=== PATIENT | female | born 1990 | race African-American/Black ===

== ENCOUNTER 2021-08-08 14:11 | Outpatient (CLI) | payer BC, SELFPAY ==
--- NOTE | ~2021-08-08 | US_ITS ---
EXAMINATION: US venous doppler [facility] DATE: 08/08/2021 14:58 INDICATION: Left lower limb edema and pain. TECHNIQUE: Grayscale ultrasound images without and with compression and Doppler ultrasound images of the left lower extremity veins were obtained. COMPARISON: None. FINDINGS: The visualized portions of left common femoral vein, profunda (deep) femoral vein, femoral vein, popl iteal vein, peroneal veins, posterior tibial veins, and greater saphenous vein outflow are patent. IMPRESSION: 1. No deep venous thrombosis. Reviewed, dictated and finalized at location A. EDURE ANALYST
== END 2021-08-08 14:12 | disposition home or self-care (01) ==
LOC: ANHIMG 14:25
PROVIDERS: PCP Emergency Medicine; Visit Provider Advanced Practice Midwife
DX: R60.0 Localized edema (principal); M25.572 Pain in left ankle and joints of left foot
CPT/HCPCS: 93971

== ENCOUNTER 2021-08-29 16:02 | Outpatient (CLI) | payer BC, OTHER, SELFPAY ==
[2021-08-29 16:40] VITALS: BP 135/82; PULSE 87
[2021-08-29 16:45] VITALS: BP 136/85; PULSE 89
[2021-08-29 16:57] LABS: Basophils Percent Auto 0.1 % (0.2-1.2); Eosinophils Absolute Auto 0.1 K/mm3 (0-0.3); Hematocrit 28.9 % (37.0-47.0); Immature Granulocyte Absolute 0.07 K/mm3 (0.00-0.031); Immature Granulocyte Percent A 0.8 % (0-0.5); Lymphocytes Absolute Auto 1.75 K/mm3 (0.9-3.2); Lymphocytes Percent Auto 19.5 % (18.3-44.2); Mean Corpuscular HGB Conc 31.1 g/dl (32-36); Mean Corpuscular Hemoglobin 25.5 pg (26-34); Mean Corpuscular Volume 81.9 fl (80-100); Mean Platelet Volume 10.9 fl (7.4-10.4); Monocytes Absolute Auto 1.1 K/mm3 (0.1-0.6); Neutrophils Percent Auto 66.6 % (45.5-73.1); Platelet Count Result 169 k/mm3 (150-375); Red Blood Count 3.53 M/mm3 (4.2-5.4); Red Cell Distribution Width 17.4 % (11.5-14.5)
[2021-08-29 17:00] VITALS: BP 136/83; PULSE 93
[2021-08-29 17:07] LABS: Alanine Aminotransferase 19 U/L (4-35); Albumin Level 3.2 g/dL (3.5-5.1); Alkaline Phosphatase 179 U/L (38-126); Anion Gap 6 mmol/L (8-16); Aspartate Amino Transferase 29 U/L (14-36); Bilirubin,Total 0.5 mg/dL (0.2-1.3); Blood Urea Nitrogen 8 mg/dL (7-17); Calcium 8.9 mg/dL (8.4-10.2); Carbon Dioxide 21 mmol/L (22-30); Chloride 105 mmol/L (98-107); Estimated Glomerular Filt Rate > 60; Glucose 79 mg/dL (65-110); Potassium 3.9 mmol/L (3.4-5.0); Sodium 132 mmol/L (137-145); Uric Acid 7.7 mg/dL (2.5-7.5)
[2021-08-29 17:15] VITALS: BP 138/78; PULSE 82
--- NOTE | 2021-08-29 17:35 | PC.NURSE ---
Called Garrett Kwan CNM with lab results and BPs. December D/C home. Follow up in office on Friday for BP check. Take Iron BID and start 24hr urine.
[2021-08-29 17:41] LABS: Add Urine Microscopic? NO; Appearance Urine Clear (Clear); Bilirubin Urine Negative (Negative); Blood Urine Negative (Negative); Color Urine Yellow (Yellow); Glucose Urine UA Negative (Negative); Ketones Urine Negative (Negative); Leukocyte Esterase Ur Negative LEU/UL (NEGATIVE); Nitrate Urine Negative (Negative); Protein Urine Negative (Negative); Specific Grav Ur 1.009 (1.001-1.035); Urobilinogen Urine Negative mg/dL (<2.0)
[2021-08-29 17:46] LABS: Total Protein Urine Random 9 mg/dL
== END 2021-08-29 18:00 | disposition home or self-care (01) ==
LOC: ANHOBOP 16:08 → ANHOBPP 16:12
PROVIDERS: Advanced Practice Midwife; PCP Emergency Medicine; Visit Provider Obstetrics & Gynecology
DX: O13.9 Gestational [pregnancy-induced] hypertension without significant proteinuria, unspecified trimester (principal); Z3A.00 Weeks of gestation of pregnancy not specified
CPT/HCPCS: 36415; 59025; 80053; 81003; 82570; 84156; 84550; 85025; 87086; 87088; 99199

== ENCOUNTER 2021-08-30 19:15 | Outpatient (NON) | payer BC, MEDICAID, SELFPAY ==
[2021-08-30 19:25] VITALS: BMI 37.5
[2021-08-30 21:51] LABS: Collection Time Urine 24 HOURS
[2021-08-30 21:52] LABS: Patient Weight 211 Lbs
[2021-08-30 21:54] LABS: Total Volume 24 Hour Urine 1750 ml
[2021-08-30 22:07] LABS: Creatinine Clearance Urine 118.5 ml/min (75-125); Creatinine Urine 88.9 mg/dL; Total Protein Urine 24 Hr 122 mg/24hr (28-141); Total Protein Urine Random 7 mg/dL
== END 2021-08-30 19:16 | disposition home or self-care (01) ==
LOC: ANHOBOP 19:20
PROVIDERS: Advanced Practice Midwife; PCP Emergency Medicine; Visit Provider Obstetrics & Gynecology
DX: R03.0 Elevated blood-pressure reading, without diagnosis of hypertension (principal)
CPT/HCPCS: 81050; 82575; 84156

== ENCOUNTER 2021-09-06 11:45 | Inpatient (IN) | payer BC, SELFPAY ==
[2021-09-06] VITALS (136 sets, daily range): BP systolic 123–169; BP diastolic 58–114; PULSE 85–151; RESP 16–18; TEMP 37.1–37.3; O2SAT 83–100; BMI 37.8
--- NOTE | 2021-09-06 12:30 | P.PNAN_ITS ---
Anes - Eval Pre Procedure Date/Time: 09/06/21 12:30 Pre Op Diagnosis: contractions Patient Data Age: 31 Gender: F Height: Weight: Last Vital Signs Pulse 88 09/06/21 12:15 BP 138/86 09/06/21 12:15 Allergies Allergy/AdvReac Type Severity Reaction Status Date / Time No Known Allergies Allergy Verified 08/27/21 14:47 Home Medications Medication Instructions Recorded Confirmed Type prenat.vits,ja,bwi-yuvk-didbd 1 tablet PO DAILY 08/27/21 08/27/21 History [ #2] Patient hx anesthesia problems: none Family hx anesthesia problems: none Results Review: All pre-operative results and documents have been reviewed as part of the pre-operative evaluation. [facility] Family History Family History Other No pertinent family history Social History Social History Substance use: never Spiritual care concerns: No Exam Day of Procedure 09/06/21 12:30 Patient weight: obese Heart: regular rate and rhythm Lungs: normal air movement Airway: Mallampati scale class II Neurological: alert and oriented
--- NOTE | 2021-09-06 14:09 | LDADM ---
This patient, Iris Killian, was admitted to Labor/Delivery/Recovery 106 on 09/06/21 at 11:45. Plans for labor, pain management and were discussed with patient. Patient/family oriented to hospital policies and general routines including ID bracelet, bed and alarms, visiting hours, pain management, procedures, bathroom and other care routines, personal items, smoking policy, room service/diet and guest tray routines, infant security routines, and visiting hours. Patient/Family are encouraged to report perceived risks to care and to ask questions if they do not understand what they are told or what they should do. See OBIX for further documentation.
[2021-09-06 14:23] LABS: Basophils Percent Auto 0.1 % (0.2-1.2); Eosinophils Absolute Auto 0.1 K/mm3 (0-0.3); Eosinophils Percent Auto 0.7 % (0-4.4); Hemoglobin 9.9 g/dL (12.0-15.0); Immature Granulocyte Absolute 0.09 K/mm3 (0.00-0.031); Lymphocytes Absolute Auto 1.73 K/mm3 (0.9-3.2); Mean Corpuscular HGB Conc 30.9 g/dl (32-36); Mean Corpuscular Hemoglobin 25.3 pg (26-34); Mean Corpuscular Volume 81.8 fl (80-100); Mean Platelet Volume 10.8 fl (7.4-10.4); Monocytes Percent Auto 10.5 % (2.6-8.5); Neutrophils Absolute Auto 6.3 K/mm3 (1.3-6.7); Neutrophils Percent Auto 68.7 % (45.5-73.1); Nucleated Red Blood Cells Perc 0.2 % (0.0-0.2); Platelet Count Result 184 k/mm3 (150-375); Red Blood Count 3.91 M/mm3 (4.2-5.4); Red Cell Distribution Width 17.9 % (11.5-14.5); White Blood Count 9.1 K/mm3 (4.5-10.0)
[2021-09-06] MEDS: fentaNYL CITRATE INJ (*CRX) 100 MCG/2 ML VIAL IV PUSH (14:27)
--- NOTE | 2021-09-06 15:12 | PM.IMHP ---
H&P: HPI History of Present Illness Date/Time: 09/06/21 15:12 31 y/o G1 @ 37 weeks here in spontaneous labor. Chief Complaint: Labor Review of Systems Review of Systems: All systems reviewed & are unremarkable except as noted in HPI and below Constitutional: Constitutional: Reports as per HPI and Reports no additional constitutional complaints Eyes: Eyes: Reports as per HPI ENT: Reports system reviewed and no additional complaints, except as documented Cardiovascular: Cardiovascular: Reports as per HPI Respiratory: Respiratory: Reports as per HPI Gastrointestinal: Gastrointestinal: Reports as per HPI Genitourinary: Genitourinary: Reports no additional female genitourinary complaints Musculoskeletal: Musculoskeletal: Reports no additional musculoskeletal complaints Integumentary/Breasts: Skin/Breast: Reports system reviewed and no additional complaints, except as docu Neurologic: Reports system reviewed and no additional complaints, except as documented Psychiatric: Psychiatric: Reports no additional psychiatric complaints Endocrine: Endocrine: Reports no additional endocrine complaints Hematologic/Lymphatic: Hematologic/Lymphatic: Reports no additional hematologic/lymphatic complaints Allergic/Immunologic: Allergic/Immunologic: Reports no additional allergic/immunologic complaints [facility] Family History Family History Other No pertinent family history Social History Social History Smoking status: Never smoker Substance use: never Spiritual care concerns: No Meds Home Medications and Allergies Home Medications Medication Instructions Recorded Confirmed Type prenat.vits,ja,ric-xspv-cldwk 1 tablet PO DAILY 08/27/21 08/27/21 History [ #2] Allergies Allergy/AdvReac Type Severity Reaction Status Date / Time No Known Allergies Allergy Verified 08/27/21 14:47 Vital Signs Vital Signs - 24 hr 09/06/21 12:15 09/06/21 12:30 09/06/21 12:45 Pulse Rate 88 86 86 Blood Pressure 138/86 148/88 H 130/82 09/06/21 13:01 09/06/21 13:15 09/06/21 13:30 Pulse Rate 98 89 89 Blood Pressure 163/85 H 136/83 143/83 H 09/06/21 13:45 09/06/21 14:30 09/06/21 15:00 Pulse Rate 93 93 90 Blood Pressure 132/78 153/89 H 159/113 H Exam Narrative: BP elevated but pt is very uncomfortable with contractions. Contractions regular FHR category 2 with variables Cervix 2cm on admission Const: General: cooperative and healthy appearing Orientation/consciousness: oriented to person, oriented to place, oriented to time and patient oriented x3 Limitations: no limitations HENMT: Head: normal to inspection Ears: hearing grossly normal bilaterally General nose exam: Normal external nose present Face and sinus: normal facial exam Mouth: Yes Normal oral and palatal mucosa present Teeth and gingiva: dentition normal Throat: posterior oropharynx normal Eyes: General: appearance normal, both eyes and all related structures Neck: Neck: normal visual inspection Thyroid: thyroid normal Chest: Chest palpation & inspection: normal inspection of the chest Resp: Effort & Inspection: normal respiratory effort Auscultation: clear to auscultation bilaterally Cardio: Rate: regular rate Rhythm: regular rhythm GI: Inspection: normal to inspection : General: Yes bimanual renal exam normal bilaterally Skin: General skin exam: normal color and no rashes or lesions noted Neuro: General: oriented to person, oriented to place, oriented to time and patient oriented x3 Extrem: General: normal to inspection Psych: Mental Status: mental status grossly normal H&P: Results Labs Labs: Short CBC 09/06/21 Range/Units 14:14 WBC 9.1 (4.5-10.0) K/mm3 Hgb 9.9 L (12.0-15.0) g/dL Hct 32.0 L (37.0-47.0) % Plt Count 184 (150-375) k/mm3 Assessment and Plan
[2021-09-06] MEDS: LACTATED RINGERS 1,000 ML 125 ML IV CONT ×2 (15:20→16:00)
[2021-09-06] MEDS: ONDANSETRON INJ 4 MG/2 ML VIAL IV PUSH (19:55)
[2021-09-06] MEDS: OXYTOCIN 30 UNITS/NS 500 ML 30 UNITS/500 ML BAG IV CONT (20:39)
--- NOTE | 2021-09-06 22:39 | P.PCNOB_ITS ---
OB - Delivery Note Procedure Delivery date: 09/06/21 Procedure: vaginal delivery Intrapartal events: None Induction method: none Delivery monitor: external FHT and external uterine Route of delivery: Episiotomy description: None Laceration Description: Labial (left) Specimen: No Quantitative Blood Loss (ml): 110 Anesthesia type: Epidural Disposition: floor [place] Baby Date of : 09/06/21 Time of : 22:25 Weeks of gestation at delivery: 40 gender: Female Weight (pounds): 8 Weight (ounces): 6 presentation: vertex position: Left Occiput Anterior Placenta delivery description: Spontaneous cord vessel description: 3 Vessels and Delayed Cord Clamping score one minute: 9 score five minutes: 9 Narrative: mom and baby skin to skin in stable condition
[2021-09-07] VITALS (44 sets, daily range): BP systolic 92–153; BP diastolic 33–101; PULSE 76–170; RESP 16–18; TEMP 36.6–37.8; O2SAT 97–100
[2021-09-07] MEDS: LACTATED RINGERS 1,000 ML 125 ML IV CONT (00:13)
--- NOTE | 2021-09-07 04:36 | PM.OBPRVD ---
OB - Delivery Note Procedure Delivery date: 09/07/21 Procedure: vaginal delivery Intrapartal events: None Delivery augmentation: pitocin Delivery monitor: external FHT and external uterine Route of delivery: Episiotomy description: None Laceration Description: None Specimen: No Quantitative Blood Loss (ml): 50 Anesthesia type: Epidural Baby Date of : 09/07/21 Time of : 04:18 Weeks of gestation at delivery: 7 Infant gender: Male presentation: vertex position: Left Occiput Anterior Placenta delivery description: Spontaneous cord vessel description: 3 Vessels and Clamped/Cut Narrative: baby to warmer, peds at bs
[2021-09-07] MEDS: OXYTOCIN 30 UNITS/NS 500 ML 30 UNITS/500 ML BAG 125 UNITS IV CONT (05:00)
[2021-09-07] MEDS: IBUPROFEN 600 MG TABLET PO ×2 (06:17→17:46)
[2021-09-07 06:28] LABS: Rapid Plasma Reagin Non-Reactive (NonReactive)
--- NOTE | 2021-09-07 08:33 | OBPPTRN ---
0755-Patient transferred to post room #285 wheelchair. Support person present. Oriented to unit, room, information board, rooming in, admission packet and security measures. Patient verbalizes understanding.
[2021-09-07] MEDS: DOCUSATE SODIUM 100 MG CAPSULE PO ×2 (08:36→17:46)
[2021-09-07] MEDS: POLYSACCHARIDE IRON COMPLEX 150 MG CAPSULE PO ×2 (08:36→17:46)
[2021-09-07] MEDS: MULTIVIT/MIN/PREN/FOL AC/IRON TABLET 1 TAB PO (08:36)
--- NOTE | 2021-09-07 14:44 | PC.NURSE ---
1000 - Consulted with patient and discussed her feeding plan. Pt states I want to pump , then said she wants to try to put baby to breast. RN placed infant skin to skin with mother, reviewed feeding cues, reviewed positioning/alignment with visual aid of mom and baby guide, holding breast nipple to nose and asymmetrical latch on with assistance of visual handout. Infant at the breast quiet, alert and awake for 5-7 min showing early feeding cues without no wide open gape. Mom states he doesn't like it and I want to pump. I tried . Mom requested a pump. 1015 -Reported to primary RN. Breast pump provided due to lactating mothers request. Instructions given on breast pump care and usage, pumping schedule, nipple care, and collection and storage of breast milk. Encouraged oron-gh-eusu, breast massage and manual expression to stimulate supply. Pumping log on feeding sheet reviewed. Assessed patient for correct flange size, placement and draw. Patient verbalizes and demonstrates understanding of instructions.
[2021-09-07] MEDS: HYDROcodone/acetaminophen (*CRX) 5-325 MG TABLET 1 TAB PO (23:25)
[2021-09-08 00:05] VITALS: BP 137/72; PULSE 82; RESP 16; TEMP 36.8; O2SAT 99
[2021-09-08] MEDS: HYDROcodone/acetaminophen (*CRX) 5-325 MG TABLET 1 TAB PO ×4 (04:15→22:28)
[2021-09-08] MEDS: IBUPROFEN 600 MG TABLET PO ×3 (04:15→22:25)
[2021-09-08 05:42] VITALS: BP 116/67; PULSE 93; RESP 16; TEMP 36.6; O2SAT 99
[2021-09-08 05:51] LABS: Hemoglobin 7.2 g/dL (12.0-15.0)
[2021-09-08] MEDS: DOCUSATE SODIUM 100 MG CAPSULE PO ×2 (07:26→16:29)
[2021-09-08] MEDS: POLYSACCHARIDE IRON COMPLEX 150 MG CAPSULE PO ×2 (07:27→16:29)
[2021-09-08] MEDS: MULTIVIT/MIN/PREN/FOL AC/IRON TABLET 1 TAB PO (07:27)
[2021-09-08 07:43] VITALS: BP 131/90; PULSE 80; RESP 18; TEMP 36.7
--- NOTE | 2021-09-08 08:53 | P.PNOB_ITS ---
OB - PN: Subj Subjective Date/time seen: 09/08/21 08:53 [place] baby status: doing well Narrative: complains of tailbone pain, not up very much. OB - PN: Obj Data Labs CBC & Chem 7: 09/08/21 04:19 Labs: Laboratory Results - last 24 hr 09/08/21 04:19 Hgb 7.2 L Hct 24.0 L OB - PN A/P Assessment and Plan (1) , delivered: Code(s): O80 - Encounter for full-term uncomplicated delivery Status: Acute (2) Anemia: Code(s): D64.9 - Anemia, unspecified Status: Acute Plan day: 1 Plan: routine care Comments: norco for tailbone pain, discussed if fx, just expectant mgt significant anemia- iron and monitor for symptoms when up and about. may need transfusion. Time Spent With Patient Time: Total time spent is greater than 50% in coordination of care (as documented) at patient's floor/unit and/or counseling patient: Time with patient: less than 15 minutes Exam Narrative: NAD abdomen soft, nontender, fundus firm below the umbilicus Extremities nontender, 1+ edema
--- NOTE | 2021-09-08 10:31 | WPDANLDPN2 ---
Anes-Prog Note L&D Date/Time: 09/08/21 10:31 Comfortable throughout: labor and delivery Neuraxial method: epidural Epidural/Spinal procedure site: clean & non-tender Neuro status: Neuro function grossly intact. Cardiovascular status: normal Respiratory status: normal Airway patency: baseline Mental status: baseline Post-Op hydration status: normal Vital Signs: Last Vital Signs Temp 36.7 C 09/08/21 07:43 Pulse 80 09/08/21 07:43 Resp 18 09/08/21 07:43 BP 131/90 09/08/21 07:43 Pulse Ox 99 09/08/21 05:42 Pain score (VAS): 09/03 Post-procedural complaints: none Patient feedback: Patient satisfied with anesthetic care.
[2021-09-08 19:00] VITALS: BP 136/84; PULSE 89; RESP 18; TEMP 36.6
[2021-09-09 08:00] VITALS: BP 132/85; PULSE 94; RESP 20; TEMP 36.6
--- NOTE | 2021-09-09 08:00 | PC.NURSE ---
Patient was given the opportunity to view the discharge video Mother & Baby Care, The First Two Weeks and to ask questions. Patient declined viewing the video and has been given the mother/baby guide for home reference.
--- NOTE | 2021-09-09 08:46 | PM.OBPNVD ---
OB - PN: Subj Subjective Date/time seen: 09/09/21 08:46 Patient comments: no complaints baby status: doing well Narrative: coccyx pain improved OB - PN: Obj Data Labs CBC & Chem 7: 09/08/21 04:19 OB - PN A/P Plan day: 2 Plan: routine care and discharge home Time Spent With Patient Time: Total time spent is greater than 50% in coordination of care (as documented) at patient's floor/unit and/or counseling patient: Time with patient: less than 15 minutes Exam Narrative: NAD abdomen soft, nontender, fundus firm below the umbilicus Extremities nontender, 1+ edema
--- NOTE | 2021-09-09 08:51 | PM.OBDSVD ---
DS: Admitting Diagnosis Discharge Date 07/10/22 Admitting Diagnosis labor DS: Discharge Diagnosis Discharge Diagnosis (1) , delivered: Code(s): O80 - Encounter for full-term uncomplicated delivery Status: Acute (2) Coccyx pain: Code(s): M53.3 - Sacrococcygeal disorders, not elsewhere classified Status: Acute OB - DS: Summary Hospital Course Hospital Course: Pt had an uncomplicated vaginal delivery and course, with the exception of significant coccygeal pain after delivery. OB Procedures : Ultrasound OB Procedures Intrapartum: Spontaneous Vag Delivery OB Procedures: : None Peripartum Data Infant Delivery Method: Natural Vaginal Status at Discharge Functional status at discharge: independent ambulation Time Spent with Patient Time attestation: Total time spent providing and/or coordinating discharge services: Exam Narrative: NAD abdomen soft, appropriately tender Ext non tender, 1+ edema DS: Data Data Completed and Pending Pending studies at discharge: Pending at discharge 09/07/21 05:43 Surgical [PTH] Routine Discharge Plan Discharge Attending physician on discharge: Ghazal Richards Discharging Clinician: Ghazal Richards Anticipated Discharge Date/Time: 09/09/21 08:48 Patient Disposition: Home, Self-Care Activity: pelvic rest Diet: as tolerated Patient Instructions: Antibiotic Form Stand Alone Forms: General Discharge Information Follow-up/Referrals: Yvonne Kwan CNM [Certified Nurse Artist And Repertoire Manager] - 4 Weeks Discharge Medications: New hydrocodone-acetaminophen 5-325 mg Tablet 1 tablet PO Q4H PRN (Reason: Pain Rated 4-6) Qty: 12 RF: 0 ibuprofen 600 mg Tablet 600 mg PO Q6H PRN (Reason: Cramping) Qty: 60 RF: 0 Continued #2 Tablet 1 tablet PO DAILY RF: 0 Date of admission: 09/06/21 11:45 Primary Care Provider: Mike Lama Admitting Provider: Ghazal Richards Attending physician on admission: Ghazal Richards Condition: Stable
[2021-09-09] MEDS: WITCH HAZEL 40 PADS 1 PAD TOPICAL (09:11)
[2021-09-09] MEDS: BENZOCAINE 20% AER SPR (*SP) 56 GM CAN 1 SPRAY TOPICAL (09:11)
[2021-09-09] MEDS: DOCUSATE SODIUM 100 MG CAPSULE PO (09:12)
[2021-09-09] MEDS: POLYSACCHARIDE IRON COMPLEX 150 MG CAPSULE PO (09:12)
[2021-09-09] MEDS: IBUPROFEN 600 MG TABLET PO (09:13)
[2021-09-09] MEDS: MULTIVIT/MIN/PREN/FOL AC/IRON TABLET 1 TAB PO (09:13)
[2021-09-09] MEDS: HYDROcodone/acetaminophen (*CRX) 5-325 MG TABLET 1 TAB PO (09:14)
--- NOTE | 2021-09-09 11:53 | PC.NURSE ---
Self care and infant care discharge instructions given including follow up visit date and time. Parents verbalized understanding. No questions or concerns voiced. Very pleasant and cooperative.
[2021-09-09] MEDS: ACETAMINOPHEN 325 MG TABLET 650 MG PO (12:26)
[2021-09-10 09:38] VITALS: BP 134/82; PULSE 101; RESP 20; O2SAT 100
== END 2021-09-09 12:35 | disposition home or self-care (01) | DRG 807 ==
LOC: ANHLDR 13:29 → ANHOB2 09-07 08:09
PROVIDERS: Advanced Practice Midwife; Admitting Provider Obstetrics & Gynecology; PCP Emergency Medicine; Visit Provider Obstetrics & Gynecology
DX: O99.02 Anemia complicating childbirth (principal); Z37.0 Single live birth; O70.0 First degree perineal laceration during delivery; D64.9 Anemia, unspecified; O77.0 Labor and delivery complicated by meconium in amniotic fluid; O76 Abnormality in fetal heart rate and rhythm complicating labor and delivery; Z3A.37 37 weeks gestation of pregnancy
CPT/HCPCS: 36415; 84112; 85014; 85018; 85025; 86592; 86850; 86900; 86901; 88307; A9270; J2405; J2590; J2795; J3010; J7120

== ENCOUNTER 2024-04-20 08:08 | Outpatient (CLI) | payer OTHER, SELFPAY ==
--- NOTE | ~2024-04-20 | MMUS_ITS ---
EXAMINATION: MM diagnostic layla BI w ricco, US breast BI complete HISTORY: Palpable right breast lump TECHNIQUE: Additional 3-D tomosynthesis images of the breasts were performed and synthetic 2-D images were generated. CAD analysis was submitted and interpreted. High resolution complete bilateral breas t ultrasound was performed. COMPARISON: No prior studies for comparison. BREAST PARENCHYMAL COMPOSITION: Dense: The breasts are heterogeneously dense, which may obscure small masses FINDINGS: MAMMOGRAPHIC FINDINGS: There are no suspicious masses, calcifications or architectural distortion in either breast to sugges t malignancy. ULTRASOUND: Complete US of all 4 quadrants of the breast/s and retroareolar region was reviewed. In the right [place] ast at 9:00, 8 cm from the nipple there is an oval hypoechoic 6 mm mass with indistinct margins, post erior acoustic enhancement and no internal vascularity, likely complicated cysts. No sonographic evid ence for malignancy in the left breast. IMPRESSION: 1. Probable benign right breast mass at 9:00, 8 cm from the nipple. 2. Recommend 6 month follow-up Limited right breast ultrasound BI-RADS category 3, probably benign findings. Reviewed, dictated and finalized at location B. IMPRESSION: 1. Probable benign right breast mass at 9:00, 8 cm from the nipple. 2. Recommend 6 month follow-up Limited right breast ultrasound BI-RADS category 3, probably benign findings.
== END 2024-04-20 08:09 | disposition home or self-care (01) ==
LOC: CHSIMG 08:14
PROVIDERS: PCP Internal Medicine
DX: N63.0 Unspecified lump in unspecified breast (principal)
CPT/HCPCS: 76641; 77062; 77066; G0279

== ENCOUNTER 2025-02-16 00:10 | Day surgery (SDC) | payer OTHER, SELFPAY ==
[2025-02-11 14:49] VITALS: BMI 33.7
--- NOTE | 2025-02-11 14:56 | PC.NURSE ---
Report to the Outpatient Waiting Room, entrance under the green pavilion located off [facility], at time _0830_ on date _[id number]_. Planned Procedure Time: _1030_.? Time changes happen often and if your time is changed the preop area will call you the afternoon before. - You and your visitor will be asked to self-screen and do not enter if you have any COVID symptoms. Please call surgeon if you need to reschedule. - A mask is optional within the hospital at this time. Patients may have clear liquids (water, carbonated beverages, clear teas, apple juice) until 3 hours prior to surgery with a maximum of 20 ounces. - No food from midnight until time of surgery and no smoking, or chewing tobacco (or any form of nicotine). No chewing gum, candy or mints. Take only the following medications with a SIP of water on the morning of surgery: ____None DO NOT STOP ANY OF YOUR OTHER PRESCRIPTION MEDICATIONS PRIOR TO SURGERY EXCEPT THE FOLLOWING Hold all vitamins and supplements for 3 days per anesthesiologist. Medications to discontinue per physician Date to take last dose Please no make-up, nail urdu, hairspray, perfume, deodorant, or body powder the day of surgery.? No jewelry (including any body piercings) or valuables the day of surgery, leave them at home.? Please take a shower or bath the night before, or the morning of, surgery with an antibacterial soap.? Wear comfortable, loose fitting clothing.? - Jewelry must be removed prior to entering the operating room.? Rings and piercings that are not removed may be cut off. - The hospital will not accept responsibility for valuables.? - Please leave all valuables, including medications, at home the day of surgery. If you are going home after surgery, a licensed trolley coach driver must drive you home.? - NO public transportation without another adult if you receive anesthesia. - We recommend that an adult stay with you for 24 hours following discharge. - We also recommend that you do not drive, make important decision, drink alcoholic beverages, or take any drugs that were not prescribed by your health care provider for at least 24 hours after your discharge time. Follow any additional instructions given to you from your surgeon. Telephone instructions given to ___Iris__and asked if any additional questions and then verbalized understanding. Patient advised to call surgeon office or pre surgery nurse liaison [phone] if any additional questions.
[2025-02-16] VITALS (12 sets, daily range): BP systolic 106–140; BP diastolic 43–79; PULSE 70–98; RESP 16–20; TEMP 36.2–36.9; O2SAT 97–100; BMI 34.6
[2025-02-16] MEDS: ACETAMINOPHEN 500 MG TABLET 1000 MG PO (08:55)
[2025-02-16] MEDS: LACTATED RINGERS 1,000 ML 30 ML IV CONT ×2 (09:00→11:20)
[2025-02-16] MEDS: KETOROLAC 15 MG/ML VIAL (*BKC) IV PUSH (09:05)
--- NOTE | 2025-02-16 09:13 | P.PNAN_ITS ---
Anes - Initial Pre Proc Eval Procedure: Operation Date: 02/16/25 10:30 Proposed Procedures p Diagnostic Laparoscopy with Bilateral Tubal Ligation, Hysteroscopy with Endometrial Ablation - Juan Pritchard MD Date/Time: 02/16/25 09:13 Surgeon: Juan Pritchard MD Pre Op Diagnosis: menorrhagia, pelvic pain, sterilization Patient Data Age: 34 Gender: F Height: 1.6 m Weight: 88.6 kg Allergies Allergy/AdvReac Type Severity Reaction Status Date / Time No Known Allergies Allergy Verified 02/16/25 09:10 Home Medications ?Medication ?Instructions ?Recorded ?Confirmed ?Type No Home Medications 10/25/21 02/11/25 History Patient hx anesthesia problems: none Family hx anesthesia problems: none Results Review: All pre-operative results and documents have been reviewed as part of the pre- operative evaluation. [facility] Family History Family History Other No pertinent family history Social History Social History Smoking status: Never smoker Substance use: never Substance use type: does not use Living arrangements: with family Spiritual care concerns: No Anes - Eval Final PreProcedure Day of Procedure 02/16/25 09:13 Patient weight: obese Heart: regular rate and rhythm Lungs: clear to auscultation Airway: Mallampati scale class II Neurological: alert and oriented Last oral intake: >/= 8 hours ASA classification: III Emergent: no Anesthetic plan: proceed Anesthesia type and monitoring: general ETT and standard monitoring Results Review: All pre-operative results and documents have been reviewed as part of the pre- operative evaluation. Informed Consent: The patient's anesthetic plan and its attendant risks and benefits were discussed with the patient/family/POA. Questions were solicited and answers provided to the satisfaction of the patient/family/POA.
[2025-02-16 09:26] LABS: BEDSIDEPREGUCG Negative (Negative)
[2025-02-16 09:37] LABS: BEDSIDEPREGUCG Negative (Negative)
--- NOTE | 2025-02-16 10:02 | PM.IMHP ---
H&P: HPI History of Present Illness Date/Time: 02/16/25 10:02 Chief Complaint: Heavy vaginal bleeding, unwanted fertility, pelvic pain Narrative: This patient is a 34-year-old female with menorrhagia, pelvic pain, unwanted fertility. We have agreed to perform laparoscopic bilateral salpingectomy, endometrial ablation with hysteroscopy and diagnostic laparoscopy. She understands risks, benefits, and alternatives. She has completed the informed consent process is ready to proceed The patient understands the details of the procedure. The procedure has been explained in detail. She understands the risks. She understands that injuries may occur that result in hospitalization, more surgery, and severe illness. She understands risk of hemorrhage and infection. She denies any chest pain or shortness of breath. She denies any nausea, vomiting, fever, chills. Review of Systems Review of Systems: All systems reviewed & are unremarkable except as noted in HPI and below Constitutional: Constitutional: Denies chills, Denies fatigue, Denies fever(s) and Denies weakness Eyes: Eyes: Denies blurry vision, Denies change in vision, Denies loss of peripheral vision, Denies loss of vision, Denies other visual disturbances and Denies eye pain ENT: Denies vertigo, Denies dizziness, Denies hearing loss, Denies mouth pain, Denies nasal obstruction, Denies neck mass and Denies neck pain Cardiovascular: Cardiovascular: Denies chest pain, Denies diaphoresis, Denies syncope, Denies leg edema and Denies dyspnea Respiratory: Respiratory: Denies chest congestion, Denies cough, Denies hemoptysis, Denies dyspnea and Denies wheezing Gastrointestinal: Gastrointestinal: Denies abdominal pain, Denies constipation, Denies diarrhea, Denies nausea and Denies vomiting Genitourinary: Genitourinary: Denies hematuria, Denies change in libido, Denies nocturia, Denies genital lesions, Denies flank pain and Denies urinary urgency Musculoskeletal: Musculoskeletal: Denies abnormal gait, Denies back pain, Denies myalgias, Denies arthralgias, Denies joint swelling, Denies muscle weakness and Denies neck pain Integumentary/Breasts: Skin/Breast: Denies swelling, Denies breast pain, Denies breast mass, Denies dry skin, Denies nipple discharge, Denies unusual bruising and Denies jaundice Neurologic: Denies Neuro-related abnormal movements, Denies Abnormal speech present, Denies abnormal gait, Denies behavioral changes, Denies confusion, Denies vertigo, Denies dizziness, Denies syncope, Denies loss of vision, Denies memory loss, Denies convulsions and Denies weakness Psychiatric: Psychiatric: Denies abnormal sleep pattern, Denies behavioral changes, Denies change in libido, Denies confusion, Denies depression, Denies anhedonia and Denies memory loss Endocrine: Endocrine: Reports no additional endocrine complaints, Denies change in libido and Denies fatigue Hematologic/Lymphatic: Hematologic/Lymphatic: Reports no additional hematologic/lymphatic complaints Allergic/Immunologic: Allergic/Immunologic: Reports no additional allergic/immunologic complaints and Denies wheezing FOR[facility]LY [facility], [facility] Family History Family History Other No pertinent family history Social History Social History Smoking status: Never smoker Substance use: never Substance use type: does not use Living arrangements: with family Spiritual care concerns: No Meds Home Medications and Allergies Home Medications ?Medication ?Instructions ?Recorded ?Confirmed ?Type No Home Medications 10/25/21 02/11/25 History Allergies Allergy/AdvReac Type Severity Reaction Status Date / Time No Known Allergies Allergy Verified 02/16/25 09:34 Vital Signs Vital Signs - 24 hr 02/16/25 08:30 Temperature 98.4 F Pulse Rate 70 Respiratory Rate 16 Blood Pressure 119/79 Pulse Oximetry 100 Oxygen Delivery Room Air Exam Const: General: cooperative, healthy appearing, comfortable and no acute distress Orientation/consciousness: oriented to person, oriented to place and oriented to time HENMT: Head: normal to inspection Ears: external ears normal Face/Nose/Sinus: Normal external nose present and normal facial exam Face and sinus: normal facial exam Eyes: General: appearance normal, both eyes and all related structures Neck: Neck: normal visual inspection, trachea midline and supple Resp: Auscultation: clear to auscultation bilaterally, no crackles, no rales, no rhonchi and no wheezes Cardio: Rate: regular rate Rhythm: regular rhythm Heart sounds: no click, no murmurs and no rubs GI: GI Palp: No abdominal tenderness, No Soft to palpation, No Tenderness to palpation present (GI) and No Palpable mass present Auscultation: normal bowel sounds Skin: General skin exam: normal color and no rashes or lesions noted Neuro: General: oriented to person, oriented to place and oriented to time Extrem: General: normal to inspection, no joint enlargement, no clubbing, cyanosis or edema, no pedal edema and no calf tenderness Psych: Appearance: grossly normal Mental Status: mental status grossly normal Speech and movement: Normal speech and movement present Assessment and Plan Assessment and plan (1) Menorrhagia: Code(s): N92.0 - Excessive and frequent menstruation with regular cycle Status: Acute (2) Unwanted fertility: Code(s): Z30.09 - Encounter for other general counseling and advice on contraception Status: Acute (3) Pelvic pain: Code(s): R10.2 - Pelvic and perineal pain Status: Acute Plan This patient is a 34-year-old female with menorrhagia, pelvic pain, unwanted fertility. We have agreed to perform laparoscopic bilateral salpingectomy, endometrial ablation with hysteroscopy and diagnostic laparoscopy. She understands risks, benefits, and alternatives. She has completed the informed consent process is ready to procee
--- NOTE | 2025-02-16 10:04 | WPDHPUPDATE1 ---
History and Physical Update Update Date/Time: 02/16/25 10:04 History and Physical has been reviewed, including an updated exam of the patient. There are NO changes in the patient's condition. Risks, benefits, and alternatives have been discussed and questions answered. Patient agrees to proceed with procedure.
--- NOTE | 2025-02-16 10:49 | S_PTH ---
PATIENT: Iris Killian LOC: [facility] U#:[id number] AGE/SX: 34/F ROOM: RE02/16/[address]: Juan Pritchard MD : 1990 BED: DIS: 02/16/2025 SPEC #: [id number] RECD: 02/16/25 13:21 STATUS: REBEL REQ #: [id number] ELEONORA: 02/16/25 10:[address]: Juan Pritchard DEPT: [facility] Surgical RECD BY: Marita Murphy ENTERED: 02/16/25 13:21 SP TYPE: Surgical OTHR DR: Kingston Restrepo, Tissues: A - Fallopian Tube Bilateral Procedures: Gross and Microscopic Level 2 Hematoxylin and Eosin Stain
--- NOTE | 2025-02-16 11:18 | P.OP_ITS ---
Procedure Note - Detailed Date of Procedure 02/16/25 Pre-op Diagnosis menorrhagia, pelvic pain, sterilization Post-op Diagnosis Same Procedure Performed Laparoscopic bilateral salpingectomy with endometrial ablation and hysteroscopy. Surgeon Juan Pritchard MD Anesthesia General Indications Menorrhagia, female sterilization Findings Hemoperitoneum with endometriosis present. There was dense scarring between bilateral ovaries and the uterus. Ovaries were adherent together at the midline also. She needs hysterectomy. Description of Procedure Patient was taken the operating room. She has prepped draped in the dorsal lithotomy position after induction of general anesthesia. A 5 mm abdominal incision was made in left upper quadrant of the abdomen with scalpel. A 5 mm trocars inserted the intra-abdominal cavity under direct visualization of the scope. Pneumoperitoneum was achieved. A 5 mm periumbilical incision was made using a scalpel on the abdominal scan. A 5 mm trocar was inserted the intra- abdominal cavity under visualization of the scope. A 5 mm incision made left lower quadrant of the abdomen. A 5 mm trocar was inserted the intra-abdominal cavity and direct visualization of the scope. The bilateral fallopian tubes were removed. The paratubal tissue in the area of the uterus was grasped with the LigaSure cautery and transected after being cauterized. The paratubal tissue from the ovary to the uterine cornu was cauterized and transected with LigaSure cautery. This was all done in a bilateral fashion. The tube was transected at the area of the uterine cornua and the tubes was removed through the 5 mm trocar site. The pneumoperitoneum was reduced. The trocars were removed. The skin was closed with subcuticular 4 Monocryl and covered with Dermabond. Our attention was then turned to the endometrial ablation portion of the procedure. A speculum was placed in the vagina. The cervix was grasped with a tenaculum. The cervix was dilated to approximately 8 mm with Whelan dilators. The hysteroscope was inserted. And the below findings were noted. All of the intrauterine surfaces were curettaged with a medium-size curette and the specimens were collected. Measurements of the cervix were taken using the uterine sound and the hysteroscope. The intrauterine cavity measurements were entered into the handpiece. The device was inserted into the intrauterine cav ity and the array was expanded. The balloon cuff was inflated. When an adequate seal was formed the safety and energy cycles were initiated and completed. The array was collapsed, the balloon was deflated. The insert was withdrawn. The hysteroscope was reinserted and a well desiccated intrauterine cavity was observed. The patient was taken recovery room stable condition. Sponge lap and needle counts were correct x2. She tolerated the procedure well. Pathology Yes Complications No immediate complications Condition Stable Disposition PACU
[2025-02-16] MEDS: fentaNYL CITRATE INJ (*CRX) 100 MCG/2 ML VIAL 25 MCG IV PUSH ×6 (11:50→12:24)
[2025-02-16] MEDS: ONDANSETRON INJ 4 MG/2 ML VIAL IV PUSH (12:46)
[2025-02-16] MEDS: oxyCODONE HCL (*CRX) 5 MG TAB IR PO (13:51)
== END 2025-02-16 14:30 | disposition home or self-care (01) ==
PROVIDERS: PCP Internal Medicine; Visit Provider Obstetrics & Gynecology
PROC: 0UDB8ZZ Extraction of Endometrium, Via Natural or Artificial Opening Endoscopic (ICD-10-PCS; CPT 58558; principal; 2025-02-16 10:30)
DX: Z30.2 Encounter for sterilization (principal); N83.8 Other noninflammatory disorders of ovary, fallopian tube and broad ligament; N80.9 Endometriosis, unspecified; G89.18 Other acute postprocedural pain; E66.9 Obesity, unspecified; Z68.34 Body mass index [BMI] 34.0-34.9, adult
CPT/HCPCS: 58661; 58563; 88302; A9270; J1100; J1885; J2003; J2250; J2405; J2704; J3010; J7120

== ENCOUNTER 2025-05-05 12:38 | Outpatient (CLI) | payer OTHER, SELFPAY ==
--- OUTSIDE RECORDS SUMMARY | 2025-05-05 14:18 | XMS_ITS | Encounter Summary ---
Author Organization [facility] Healthcare Address [address] [place] [address] Care Team Providers Care Milling Machine Tender Name Role Phone Mike Lama MD Unavailable Kingston Restrepo MD Primary Care Provider + Encounter Details Date Type Department Care Team (Latest Contact Info) Description 03/11/2025 Results Follow-Up [facility] Primary [facility] [address] [place] [address] Devi Ballesteros PA [address] [place] [address] Comprehensive metabolic panel, TSH, Lipid panel, Additional followed-up results: 2 Social History Tobacco Use Types Packs/Day Years Used Date Smoking Tobacco: Never Cigarettes Smokeless Tobacco: Never Alcohol Use Standard Drinks/Week Comments No 0 (1 standard drink = 0.6 oz pur e alcohol) AUDIT-C Answer Date Recorded Q1: How often do you have a drink containing alcohol? Never 01/14/2025 Q2: How many drinks containi ng alcohol do you have on a typical day when you are drinking? Patient does not drink Q3: How often do you have si x or more drinks on one occasion? 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
--- OUTSIDE RECORDS SUMMARY | 2025-05-05 14:18 | XMS_ITS | Clinical Summary ---
Author Organization [facility] Address [address] [place] [address] Care Team Providers Care Electronic Scale Assembler And Tester Name Role Phone Mike Lama MD Unavailable Kingston Restrepo MD Primary Care Provider + Allergies Active Allergy Reactions Criticality Noted Date Comments Cefuroxime Other (See comments) Low 09/24/2024 Yeast infection Medications ibuprofen (ADVIL,MOTRIN) 800 mg tablet Take 1 tablet (800 mg total) by mouth every 8 (eight) hours as needed for pain 90 tablet 1 4 Active spironolactone (ALDACTONE) 25 mg tabletIndicatio ns:Hirsutism Take 1 tablet (25 mg total) by mouth daily 30 tablet 2 5 09/24/19 26 Active Additional Information Patient not taking.Reported on 03/17/2025 Active Problems Problem Noted Date Diagnosed Date RLQ abdominal pain 03/17/2025 Assessment & Plan (03/17/2025 7:19 AM CDT): Possibly secondary to endometriosis. Will check a CT scan of abdomen and pelvis Hirsutism 09/24/2024 Assessment & Plan (09/24/2024 12:46 PM SYSTEM SALES CONSULTANT): Most likely genetic predisposition, patient had more dense hair growth over body since childhood. Lot worse under the chin. Will check testosterone level. Will start spironolactone. Discussed with patient to try it for at least 3 months. Iron deficiency anemia secon nain to inadequate dietary iron intake 09/23/2022 Assessment & Plan (09/24/2024 12:47 PM SYSTEM SALES CONSULTANT): Patient has been off of iron supplementation for a while. Will recheck iron level to monitor. Labs ordered last year were not done. Will reorder again Assessment & Plan (08/27/2023 8:52 AM SYSTEM SALES CONSULTANT): Patient has been off of iron supplementation for a while. Will recheck iron level and CBC to monitor. Assessment & Plan (09/23/2022 3:12 PM SYSTEM SALES CONSULTANT): Will restart iron once a day. Encounter for consultation 07/17/2022 Assessment & Plan (01/14/2025 11:50 AM CDT): Patient discovered mold in air ducts in her house. No worrisome symptoms. She has infrequent dry cough that she had for few months, no more than just couple coughs so the time. In the process of cleaning air ducts. I discussed with patient to maintain house the best it can be to reduce unnecessary exposures. Assessment & Plan (09/24/2024 12:46 PM SYSTEM SALES CONSULTANT): Stress some weight loss. Will check wellness labs including CMP, lipid panel and thyroid function. Assessment & Plan (08/27/2023 8:58 AM SYSTEM SALES CONSULTANT): Patient is doing well. Had child last year. Up-to-date on Pap. Will check CMP to check fasting blood sugar. Assessment & Plan (07/17/2022 9:18 AM SYSTEM SALES CONSULTANT): Patient did not have wellness labs for well. Will draw today. Chronic bilateral low back pain without sciatica 04/11/2022 Assessment & Plan (09/24/2024 12:43 PM SYSTEM SALES CONSULTANT): Stable at baseline. On ibuprofen p.r.n. Assessment & Plan (07/30/2024 11:23 AM SYSTEM SALES CONSULTANT): Flaired 1 week ago. No h/o injury. Will try prednisone taper, after that cont ibuprofen 800 mg up to 3 times a day as needed with food. Will refer to PT. Assessment & Plan (08/27/2023 8:45 AM SYSTEM SALES CONSULTANT): Stable off meds. Assessment & Plan (05/16/2022 9:30 AM CDT): Physical therapy was ordered, but unfortunately she had COVID when she was scheduled to go and never rescheduled. Assessment & Plan (04/11/2022 2:20 PM CDT): Continue flexeril. Start ibuprofen 800 mg three times a day for 1 week then prn. Refer to PT. Instructed on heat every 20-30 minutes. Class 1 obesity due to exces s calories without serious comorbidity with body mass index (BMI) of 33.0 to 33.9 in adult 04/11/2022 Assessment & Plan (09/24/2024 12:43 PM SYSTEM SALES CONSULTANT): BMI Follow-up includes: nutrition counseling. Stress weight loss Assessment & Plan (08/27/2023 8:45 AM SYSTEM SALES CONSULTANT): BMI Follow-up includes: nutrition counseling. Stress weight loss Assessment & Plan (09/23/2022 3:13 PM SYSTEM SALES CONSULTANT): BMI Follow-up includes: exercise counseling. Assessment & Plan (07/17/2022 9:17 AM SYSTEM SALES CONSULTANT): Stress weight loss. Assessment & Plan (05/14/2022 3:18 PM CDT): BMI Follow-up includes: exercise counseling. Assessment & Plan (04/11/2022 2:10 PM CDT): BMI Follow-up includes: exercise counseling. Resolved Problems Problem Noted Date Diagnosed Date Resolved Date Hives 08/27/2023 07/30/2024 Assessment & Plan (08/27/2023 8:50 AM SYSTEM SALES CONSULTANT): Onset yesterday. Patient had salmon night before and vitamins that morning. No respiratory distress, mouth or throat edema.Will administer Kenalog 40 mg IM. Continue tomorrow with prednisone. Continue Benadryl at night until hives resolve. Discussed with patient that hives is more likely reaction of ingesting something, not a contact dermatitis. Don't take dose particular vitamins anymore. In the future if will attempt to eat salmon, try very small piece, if will develop similar reaction, will know for sure she is allergic to it. Other acute sinusitis 09/23/20222023 Assessment & Plan (09/23/2022 3:32 PM SYSTEM SALES CONSULTANT): Augmentin 875 mg twice a day for 10 days. Instructed to yogurt while she is on this to help prevent diarrhea. If she is not like yogurt instructed to get probiotic can take it twice a day while she is on the antibiotic. Abnormal craving 07/17/2022 08/27/2023 Assessment & Plan (07/17/2022 9:15 AM SYSTEM SALES CONSULTANT): Craving ice for 1 year. Had it previously when was iron deficient. Will check labs. Throat irritation 07/17/2022 08/27/2023 Assessment & Plan (07/17/2022 9:16 AM SYSTEM SALES CONSULTANT): Could be from nasal drainage or possible acid reflux. Will try omeprazole additionally to Flonase. Seasonal allergic rhinitis 07/17/2022 0 08/27/2023 Assessment & Plan (08/27/2023 8:42 AM SYSTEM SALES CONSULTANT): resolved Assessment & Plan (07/17/2022 9:15 AM SYSTEM SALES CONSULTANT): Patient tried Zyrtec it did not help. Will try steroid nasal spray. COVID-19 virus infection 05/01/202210/2023 Assessment & Plan (05/16/2022 9:38 AM CDT): Residual drainage. Ok to try Zyrtec Assessment & Plan (05/01/2022 11:44 AM CDT): Onset yesterday. Symptoms are mild, overall patient in low risk group, for that reason will not consider COVID antiviral treatment. Will treat cough with Tessalon Perles. Contact our office if develop new symptoms or feeling worse at any point. Wear mask at home to prevent household transmission. Patient has 1 years old child. 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 Discussed that cysts can be due to ovulation, a product of annovulation such as PCOS, or due to pathologic reasons such as endometriomas or teratomas. -Given we are unsure of the type of cyst, encouraged patient to continue OCPs because this may decrease cyst production. -Will plan to repeat pelvic US at [facility], order sent -Will call after US results to discuss further options Encounters Date Type Department Care Team Description 04/18/2025 Results Follow-Up [facility] [address] [place] [address] [address] Abdomen Pelvis W Contrast 04/08/2025 7:02 AM CDT - 04/08/2025 11:59 PM CDT Hospital Encounter [facility] [address] [place] [address] RLQ abdominal pain Discharge Disposition: Discharge to home or self care 03/30/2025 Telephone [facility] [address] [place] [address] Kingston Restrepo MD Forms Request 03/28/2025 Telephone [facility] [address] [place] [address] Kingston Restrepo MD 03/17/2025 7:00 AM CDT Office Visit [facility] [address] [place] [address] Kingston Restrepo MD RLQ abdominal pain (Primary Dx) 03/16/2025 Nurse Triage [facility] [address] [place] [address] Kingston Restrepo MD 03/11/2025 Results Follow-Up [facility] [address] [place] [address] Devi Ballesteros PA Comprehensive metabolic panel, TSH, Lipid panel, Additional followed-up results: 2 from Last 3 Months Immunizations Immunization Administration Dates Next Due DTP 02/05/1995, 2,1990,09/02,1990 Hep B, Adolescent or Pediatric 0,02/14/2000,01/15/2000,08/19,02/10/1991,1990 HiB 08/19/1991,02/10/1991,1990 IPV 02/05/1995 Influenza, Trivalent, Preser vative Free, Intramuscular 10/28/2017 Influenza, Unspecified 01/14/2025(Deferr ed: Patient decision),09/24/2024(Deferred: Patient decision),07/30/2024(Deferred: Patient decision),08/27/2023(Deferred: Patient decision),05/27/2023(Deferred: Patient decision) MMR 02/05/1995,08/19/1991 OPV 11/11/1991,1990,1990 Surgical History Surgery Date Site/Laterality Comments TUBAL LIGATION Medical History Medical History Date Comments Ovarian cyst Protrusion of lumbar intervertebral disc Family History Medical History Relation Name Comments Cancer Father Kenneth Killian Hypertension Mother Deneen Killian Relation Name Status Comments Father Kenneth Killian Mother Deneen Killian Alive Social History Tobacco Use Types Packs/Day Years Used Date Smoking Tobacco: Never Cigarettes Smokeless Tobacco: Never Tobacco Cessation:Counseling Given: Not Answered Alcohol Use Standard Drinks/Week Comments No 0 (1 standard drink = 0.6 oz pur e alcohol) AUDIT-C Answer Date Recorded Q1: How often do you have a drink containing alcohol? Never 03/17/2025 Q2: How many drinks containi ng alcohol do you have on a typical day when you are drinking? Patient does not drink Q3: How often do you have si x or more drinks on one occasion? 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 Not on file Not on file Not on cameron e Obstetrics History Para Term AB IAB SAB Ectopic Multiple Livin g Live Births 0 0 0 0 0 0 0 0 0 0 0 Last Filed Vital Signs Vital Sign Reading Time Taken Comments Blood Pressure 114/70 03/17/2025 7:01 AM CDT Pulse 77 03/17/2025 7:01 AM CDT Temperature 36.7 C (98.1 F) 03/17/2025 7:01 AM CDT Respiratory Rate 18 03/17/2025 7:01 AM CDT Oxygen Saturation 100% 03/17/2025 7:01 AM CDT Inhaled Oxygen Concentration - - Weight 89 kg (196 lb 4.8 oz) 03/17/2025 7:01 AM CDT Height 160 cm (5' 3) 03/17/2025 7:01 AM CDT Body Mass Index 34.77 03/17/2025 7:01 AM CDT Plan of Treatment Health Maintenance Due Date Last Done Comments Cervical Cancer Screening 1990 Hepatitis C Screening 1990 DTaP/Tdap/Td Vaccine (6 - Tdap) 2001 02/05/1995, 11/11/1991, 1990, Additional history exists Varicella Vaccines (1 of 2 - 13+ 2-dose series) 2003 HPV Vaccines (1 - 3-dose SCDM series) 2017 Influenza Vaccine (#1) 2025 10/28/2017 Regular Well Visit/Exam 18-64 09/24/2025 09/24/2024, 08/27/2023 Depression Screening 03/17/2026 03/17/2025, 09/24/2024, 08/27/2023, Additional history exists Hepatitis B Screening Completed 07/22/2000 , 02/14/2000, 01/15/2000, Additional history exists Pneumococcal vaccine <65 Aged Out No longer eligible based on patient's age to complete this topic Procedures Procedure Name Priority Date/Time Associated Diagnosis Comments CT ABDOMEN PELVIS W CONTRAST Schedule Routine, Read Routine (OP Routine) 04/08/2025 7:29 AM CDT RLQ abdominal pain TESTOSTERONE, TOTAL, LC/MS Routine 03/10/2025 9:34 AM CDT IRON PROFILE W/ IBC Routine 03/10/2025 9 :32 AM CDT Iron deficiency anemia secondary to inadequate dietary iron intake LIPID PANEL Routine 03/10/2025 9:32 AM CDT Wellness examination TSH Routine 03/10/2025 9:32 AM CDT Wellness examination COMPREHENSIVE METABOLIC PANEL Routine 03/10/2025 9:32 AM CDT Wellness examination from Last 3 Months Results * CT Abdomen Pelvis W Contrast (04/08/2025 7:29 AM CDT) Anatomical Region Laterality Modality Body N/A Computed Tomogra phy 04/17/2025 6:27 PM CDT Narrative 04/17/2025 6:31 PM CDT EXAM DESCRIPTION: CT ABDOMEN PELVIS W CONTRAST REASON FOR STUDY: RLQ pain x several years. Hx of endometriosis TECHNIQUE: CT scan of the abdomen and pelvis performed with intravenous and without oral contrast using helical scanning technique with dynamic intravenous contrast injection. Reconstructed coronal and sagittal MPR images reviewed. All images stored on PACS. Automated exposure control was used as a dose optimization technique for this examination. CONTRAST TYPE/DOSE: 100mL of IOVERSOL 350 MG IODINE/ML INTRAVENOUS SYRINGE injected via intravenous COMPARISON: None. FINDINGS: LOWER CHEST: Lung bases are predominantly clear. There is no pleural effusion. LIVER: Liver size and contour normal. The portal and hepatic veins are patent. GALLBLADDER: No gallstones or overt inflammatory change. BILE DUCTS: No biliary ductal dilation. SPLEEN: Spleen size normal. No focal splenic lesion. PANCREAS: No pancreatic mass or inflammatory change. ADRENALS: Normal KIDNEYS/URINARY TRACT: No right renal calculus. No left renal calculus. No ureteral calculus. There is fluid urinary bladder. No urinary bladder mass or calculus. There are calcifications in the right hemipelvis and left hemipelvis appear to be due to phleboliths. GI: No evidence of bowel obstruction. The terminal ileum is normal. Normal appendix. Stomach and duodenum normal. No pneumatosis. PERITONEUM: No ascites or free air. No mesenteric mass. RETROPERITONEUM: No retroperitoneal mass. There are few small nonenlarged retroperitoneal lymph nodes. REPRODUCTIVE: The uterus is mildly enlarged and heterogeneous. Some areas of relative low-density in the myometrium 0.9 cm may be a small fibroid. Mildly prominent vascular structures in the pelvis could be seen with pelvic congestion syndrome in the appropriate setting. There is a right ovarian cystic structure 1.1 cm which may be a follicle. Small enhancing nodular focus in the region of the left adnexa 0.6 cm. VASCULATURE: Abdominal aorta nonaneurysmal. MUSCULOSKELETAL: Bone windows demonstrate no acute or aggressive osseous abnormality. OTHER: No other abnormality. IMPRESSION: 1. No evidence of an acute abnormality of the abdomen and pelvis. 2. Normal appendix. 3. Mildly enlarged heterogeneous uterus with probable a small fibroid. 4. Mildly prominent vascular structures in the pelvis could be seen with pelvic congestion syndrome in the appropriate setting. THIS IS AN ELECTRONICALLY VERIFIED FINAL REPORT 04/17/2025 6:31 PM - Electronically signed by Stveen Olson M.D. CH: APRIL Report ID: [id number] Reading Location: [place] [address] Procedure Note Steven Olson MD - 04/17/2025 EXAM DESCRIPTION: CT ABDOMEN PELVIS W CONTRAST REASON FOR STUDY: RLQ pain x several years. Hx of endometriosis TECHNIQUE: CT scan of the abdomen and pelvis performed with intravenousand without oral contrast using helical scanning technique with dynamic intravenous contrast injection. Reconstructed coronal and sagittal MPRimages reviewed. All images stored on PACS. Automated exposure control was usedas a dose optimization technique for this examination. CONTRAST TYPE/DOSE: 100mL of IOVERSOL 350 MG IODINE/ML INTRAVENOUSSYRINGE injected via intravenous COMPARISON: None. FINDINGS: LOWER CHEST: Lung bases are predominantly clear. There is no pleural effusion. LIVER: Liver size and contour normal. The portal and hepatic veins are patent. GALLBLADDER: No gallstones or overt inflammatory change. BILE DUCTS: No biliary ductal dilation. SPLEEN: Spleen size normal. No focal splenic lesion. PANCREAS: No pancreatic mass or inflammatory change. ADRENALS: Normal KIDNEYS/URINARY TRACT: No right renal calculus. No left renal calculus.No ureteral calculus. There is fluid urinary bladder. No urinary bladdermass or calculus. There are calcifications in the right hemipelvis and left hemipelvis appear to be due to phleboliths. GI: No evidence of bowel obstruction. The terminal ileum is normal.Normal appendix. Stomach and duodenum normal. No pneumatosis. PERITONEUM: No ascites or free air. No mesenteric mass. RETROPERITONEUM: No retroperitoneal mass. There are few smallnonenlarged retroperitoneal lymph nodes. REPRODUCTIVE: The uterus is mildly enlarged and heterogeneous. Someareas of relative low-density in the myometrium 0.9 cm may be a small fibroid. Mildly prominent vascular structures in the pelvis could be seen withpelvic congestion syndrome in the appropriate setting. There is a right ovarian cystic structure 1.1 cm which may be a follicle. Small enhancing nodular focus in the region of the left adnexa 0.6 cm. VASCULATURE: Abdominal aorta nonaneurysmal. MUSCULOSKELETAL: Bone windows demonstrate no acute or aggressive osseous abnormality. OTHER: No other abnormality. IMPRESSION: 1. No evidence of an acute abnormality of the abdomen and pelvis. 2. Normal appendix. 3. Mildly enlarged heterogeneous uterus with probable a small fibroid. 4. Mildly prominent vascular structures in the pelvis could be seen with pelvic congestion syndrome in the appropriate setting. THIS IS AN ELECTRONICALLY VERIFIED FINAL REPORT 04/17/2025 6:31 PM - Electronically signed by Steven Olson M.D. CH: APRIL Report ID: [id number] Reading Location: [id number] us Kingston Restrepo MD IMG CT PROCEDURES Final Result * Testosterone, Total, LC/MS (03/10/2025 9:34 AM CDT) Testosterone 36 2 - 45 ng/dL [facility] Comment: For additional information, please refer to https://education.Alai/faq/TotalTestosteroneLCMSMS (This link is being provided for informational/educational purposes only.) (Note) This test was developed and its analytical performance characteristics have been determined by [employer]. It has not been cleared or approved by the FDA. This assay has been validated pursuant to the CLIA regulations and is used for clinical purposes. [facility] [address] [place] [address],[address] [place] [address] Gia Godinez MD, PhD 03/10/2025 9:34 AM CDT 03/10/2025 9:34 AM CDT us Devi DOTY LAB BLOOD ORDERABLES Final Result [facility] [address] [place] [address], [address] [place] [address] * (ABNORMAL) Iron profile w/ IBC (03/10/2025 9:32 AM CDT) Iron 52 40 - 190 mcg/dL [facility] TIBC 501(H) 250 - 450 mcg/dL (calc) [facility] Iron saturation 10(L) 16 - 45 % (calc) [facility] Blood 03/10/2025 9:32 AM CDT 03/10/2025 9:33 AM CDT Narrative [facility] - 03/11/2025 1:49 AM CDT FASTING:YES FASTING: YES Devi DOTY LAB BLOOD ORDERABLES Final Result Performing Organization Address City/[facility]/ZIP Co de Phone Number [employer] [address] [phone] * TSH (03/10/2025 9:32 AM CDT) [facility] TSH 1.65 mIU/L [facility] Comment: Reference Range > or = 20 Years 0.40-4.50 Ranges First trimester 0.26-2.66 Second trimester 0.55-2.73 Third trimester 0.43-2.91 Blood 03/10/2025 9:32 AM CDT 03/10/2025 9:33 AM CDT Narrative [facility] - 03/11/2025 1:49 AM CDT FASTING:YES FASTING: YES Devi DOTY LAB BLOOD ORDERABLES Final Result Performing Organization Address [facility] Co de Phone Number [facility] [address] [place] [address] * (ABNORMAL) Lipid panel (03/10/2025 9:32 AM CDT) [facility] Cholesterol 188 <200 mg/dL [facility] HDL 53 > OR = 50 mg/dL [facility] Triglycerides 83 <150 mg/dL [facility] LDL 117(H) mg/dL (calc) [facility] Comment: Reference range: <100 Desirable range <100 mg/dL for primary prevention; <70 mg/dL for patients with CHD or diabetic patients with > or = 2 CHD risk factors. LDL-C is now calculated using the Yazan calculation, which is a validated novel method providing better accuracy than the Friedewald equation in the estimation of LDL-C. Javier WOODS et al. TRANG. 2013;310(19): 6885-9364 (http://education.[employer].Capricor/faq/XOV124) Chol/HDL ratio 3.5 <5.0 (calc) [facility] Non-HDL, (LDL+VLDL) 135(H) <130 mg/dL (calc) [facility] Comment: For patients with diabetes plus 1 major ASCVD risk factor, treating to a non-HDL-C goal of <100 mg/dL (LDL-C of <70 mg/dL) is considered a therapeutic option. Blood 03/10/2025 9:32 AM CDT 03/10/2025 9:33 AM CDT Narrative [facility] - 03/11/2025 1:49 AM CDT FASTING:YES FASTING: YES us Devi DOTY LAB BLOOD ORDERABLES Final Result [email or web address] [address] [place] [address] * Comprehensive metabolic panel (03/10/2025 9:32 AM CDT) Pathologist [facility] Glucose 95 65 - 99 mg/dL [facility] Comment: Fasting reference interval BUN 11 7 - 25 mg/dL [facility] Creatinine 0.73 0.50 - 0.97 mg/dL [facility] eGFR 111 > OR = 60 mL/min/1.7 3m2 [facility] BUN/creat ratio SEE NOTE: 6 - 22 (calc) [facility] Comment: Not Reported: BUN and Creatinine are within reference range. Sodium 137 135 - 146 mmol/L [facility] Potassium, pl 4.4 3.5 - 5.3 mmol/L [facility] Chloride 106 98 - 110 mmol/L [facility] [employer] [facility] Alex CO2 25 20 - 32 mmol/L [facility] Calcium 8.9 8.6 - 10.2 mg/dL [facility] Protein, sr 6.9 6.1 - 8.1 g/dL [facility] Albumin 4.3 3.6 - 5.1 g/dL [facility] GLOBULIN 2.6 1.9 - 3.7 g/dL (calc) Ryan [facility] Alb/glob ratio 1.7 1.0 - 2.5 (calc) [facility] Bilirubin, total 1.1 0.2 - 1.2 mg/dL [facility] Alk phos 75 31 - 125 U/L [facility] AST 13 10 - 30 U/L [facility] ALT (SGPT) 12 6 - 29 U/L [facility] Blood 03/10/2025 9:32 AM CDT 03/10/2025 9:33 AM CDT Narrative [facility] - 03/11/2025 1:49 AM CDT FASTING:YES FASTING: YES us Devi DOTY LAB BLOOD ORDERABLES Final Result [facility] [address] [place] [address] from Last 3 Months Insurance [facility] MEDICA[facility] Care Teams Electronic Scale Assembler And Tester Relationship Specialty Start Date End Date Kingston Restrepo MD [address] [place] [id number] PCP - General Internal Medicine 04/11/22 Mike Lama MD 12/01/18
--- OUTSIDE RECORDS SUMMARY | 2025-05-05 14:18 | XMS_ITS | Clinical Summary ---
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 09/01/2023 Active clobetasoL (TEMOVATE) 0.05 % Solution Apply to affected areas on scalp once daily as needed 50 mL 1 01/29/2024 Active Encounters Date Type Department Care Team Description 02/08/2025 External Device Data STL ABSTRACTION Provider, Abstract from Last 3 Months Social History Tobacco Use Types Packs/Day Years Used Date Smoking Tobacco: Never Assessed Comments Unknown Sex and Gender Information Value Date Recorded Sex Assigned at Not on file Legal Sex Female 2:45 PM STORAGE BRINE WORKER Gender Identity Not on file Sexual Orientation Not on file Plan of Treatment Health Maintenance Due Date Last Done Comments DTAP/TDAP/TD VACCINES (1 - Tdap) 2009 HEPATITIS B VACCINES (1 of 3 - 19+ 3-dose series) 12/2008 HPV/Cotest (21-29) 2011 HPV VACCINES (1 - 3-dose SCDM series) 2017 CERVICAL CANCER SCREENING 2020 HPV/Cotest (30-65) 2020 PAP SMEAR 2020 INFLUENZA VACCINE (#1) 2025 Insurance RX [employer] (INTERNAL) [facility]
--- OUTSIDE RECORDS SUMMARY | 2025-05-05 14:18 | XMS_ITS | Encounter Summary ---
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 Pritchard, gynecology. documented in this encounter Plan of Treatment Not on file documented as of this encounter Visit Diagnoses Not on filedocumented in this encounter Care Teams Cobol Programmer Relationship Specialty Start Date End Date Kingston Restrepo MD [address] [place] [id number] PCP - General Internal Medicine 04/11/22 Mike Lama MD 12/01/18 documented as of this encounter
== END 2025-05-05 12:39 | disposition home or self-care (01) ==
LOC: ANHSURGERY 12:43
PROVIDERS: PCP Internal Medicine; Visit Provider Obstetrics & Gynecology
DX: Z01.818 Encounter for other preprocedural examination (principal); N92.0 Excessive and frequent menstruation with regular cycle
CPT/HCPCS: 36415; 86850; 86900; 86901

== ENCOUNTER 2025-05-13 05:32 | Day surgery (SDC) | payer OTHER, SELFPAY ==
--- NOTE | 2025-05-03 10:35 | PC.NURSE ---
Report to the Outpatient Waiting Room, entrance under the green pavilion located off [facility], at time 0630 on date __05/13/2025 . Planned Procedure Time: ___0830 .? Time changes happen often and if your time is changed the preop area will call you the afternoon before. - You and your visitor will be asked to self-screen and do not enter if you have any COVID symptoms. Please call surgeon if you need to reschedule. - A mask is optional within the hospital at this time. Patients may have clear liquids (water, carbonated beverages, clear teas, apple juice) until 3 hours prior to surgery with a maximum of 20 ounces. - No food from midnight until time of surgery and no smoking, or chewing tobacco (or any form of nicotine). No chewing gum, candy or mints. - Take only the following medications with a SIP of water on the morning of surgery: n/a Please no make-up, nail trinidadian, hairspray, perfume, deodorant, or body powder the day of surgery.? No jewelry (including any body piercings) or valuables the day of surgery, leave them at home.? Please take a shower or bath the night before, or the morning of, surgery with an antibacterial soap.? Wear comfortable, loose fitting clothing.? - Jewelry must be removed prior to entering the operating room.? Rings and piercings that are not removed may be cut off. - The hospital will not accept responsibility for valuables.? - Please leave all valuables, including medications, at home the day of surgery. If you are going home after surgery, a licensed shuttle truck driver must drive you home.? - NO public transportation without another adult if you receive anesthesia. - We recommend that an adult stay with you for 24 hours following discharge. - We also recommend that you do not drive, make important decision, drink alcoholic beverages, or take any drugs that were not prescribed by your health care provider for at least 24 hours after your discharge time. Follow any additional instructions given to you from your surgeon. Telephone instructions given to _Patient/Iris and asked if any additional questions and then verbalized understanding. Patient advised to call surgeon office or pre surgery nurse liaison [phone] if any additional questions.
[2025-05-13] VITALS (10 sets, daily range): BP systolic 109–147; BP diastolic 53–84; PULSE 80–93; RESP 14–20; TEMP 36.1–36.9; O2SAT 96–100
--- OUTSIDE RECORDS SUMMARY | 2025-05-13 05:36 | XMS_ITS | Encounter Summary ---
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
--- OUTSIDE RECORDS SUMMARY | 2025-05-13 05:36 | XMS_ITS | Clinical Summary ---
Author Organization [facility] Address [address] [facility] [address] [facility] [address] [place] [address] Phone Care Team Providers Care Fortune Teller Name Role Phone Unavailable Primary Care Provider Unavailabl e Medications fluocinonide (LIDEX) 0.05 % Ointment Apply twice daily to affected areas as needed 60 Gram 09/03/2023 3:42 PM INVESTMENTS MANAGER 09/01/2023 Active clobetasoL (TEMOVATE) 0.05 % Solution Apply to affected areas on scalp once daily as needed 50 mL 1 01/29/2024 Active Social History Tobacco Use Types Packs/Day Years Used Date Smoking Tobacco: Never Assessed Comments Unknown Sex and Gender Information Value Date Recorded Sex Assigned at Not on file Legal Sex Female 2:45 PM INVESTMENTS MANAGER Gender Identity Not on file Sexual Orientation [...]
--- OUTSIDE RECORDS SUMMARY | 2025-05-13 05:36 | XMS_ITS | Clinical Summary ---
Author Organization [facility] Address [address] [place] [address] Care Team Providers Care Test Lead Application Testing Name Role Phone Mike Lama MD Unavailable [...] 09/24/2024 Assessment & Plan (09/24/2024 12:46 PM WINE MERCHANT): Most likely genetic predisposition, patient had more dense hair growth over body since childhood. Lot worse under the chin. Will check testosterone level. Will start spironolactone. Discussed with patient to try it for at least 3 months. Iron deficiency anemia secon nain to inadequate dietary iron intake 09/23/2022 Assessment & Plan (09/24/2024 12:47 PM WINE MERCHANT): Patient has been off of iron supplementation for a while. Will recheck iron level to monitor. Labs ordered last year were not done. Will reorder again Assessment & Plan (08/27/2023 8:52 AM WINE MERCHANT): Patient has been off of iron supplementation for a while. Will recheck iron level and CBC to monitor. Assessment & Plan (09/23/2022 3:12 PM WINE MERCHANT): Will restart iron once a day. Encounter [...] exposures. Assessment & Plan (09/24/2024 12:46 PM WINE MERCHANT): Stress some weight loss. Will check wellness labs including CMP, lipid panel and thyroid function. Assessment & Plan (08/27/2023 8:58 AM WINE MERCHANT): Patient is doing well. Had child last year. Up-to-date on Pap. Will check CMP to check fasting blood sugar. Assessment & Plan (07/17/2022 9:18 AM WINE MERCHANT): Patient did not have wellness labs for well. Will draw today. Chronic bilateral low back pain without sciatica 04/11/2022 Assessment & Plan (09/24/2024 12:43 PM WINE MERCHANT): Stable at baseline. On ibuprofen p.r.n. Assessment & Plan (07/30/2024 11:23 AM WINE MERCHANT): Flaired 1 week ago. No h/o injury. Will try prednisone taper, after that cont ibuprofen 800 mg up to 3 times a day as needed with food. Will refer to PT. Assessment & Plan (08/27/2023 8:45 AM WINE MERCHANT): Stable off meds. Assessment & Plan (05/16/2022 [...] 04/11/2022 Assessment & Plan (09/24/2024 12:43 PM WINE MERCHANT): BMI Follow-up includes: nutrition counseling. Stress weight loss Assessment & Plan (08/27/2023 8:45 AM WINE MERCHANT): BMI Follow-up includes: nutrition counseling. Stress weight loss Assessment & Plan (09/23/2022 3:13 PM WINE MERCHANT): BMI Follow-up includes: exercise counseling. Assessment & Plan (07/17/2022 9:17 AM WINE MERCHANT): Stress weight loss. Assessment & Plan (05/14/2022 3:18 PM CDT): BMI Follow-up includes: exercise counseling. Assessment & Plan (04/11/2022 2:10 PM CDT): BMI Follow-up includes: exercise counseling. Resolved Problems Problem Noted Date Diagnosed Date Resolved Date Hives 08/27/2023 07/30/2024 Assessment & Plan (08/27/2023 8:50 AM WINE MERCHANT): Onset yesterday. Patient had salmon night before [...] 09/23/20222023 Assessment & Plan (09/23/2022 3:32 PM WINE MERCHANT): Augmentin 875 mg twice a day for 10 days. Instructed to yogurt while she is on this to help prevent diarrhea. If she is not like yogurt instructed to get probiotic can take it twice a day while she is on the antibiotic. Abnormal craving 07/17/2022 08/27/2023 Assessment & Plan (07/17/2022 9:15 AM WINE MERCHANT): Craving ice for 1 year. Had it previously when was iron deficient. Will check labs. Throat irritation 07/17/2022 08/27/2023 Assessment & Plan (07/17/2022 9:16 AM WINE MERCHANT): Could be from nasal drainage or possible acid reflux. Will try omeprazole additionally to Flonase. Seasonal allergic rhinitis 07/17/2022 0 08/27/2023 Assessment & Plan (08/27/2023 8:42 AM WINE MERCHANT): resolved Assessment & Plan (07/17/2022 9:15 AM WINE MERCHANT): Patient tried Zyrtec it did not help. [...] Overview (07/06/2018): -Faxed release of information to [facility] to obtain prior pelvic US -Patient with [...] Department Care Team Description 04/18/2025 Results Follow-Up [facility] Primary Care [address] [place] [address] Abdomen Pelvis W Contrast 04/08/2025 7:02 AM CDT - 04/08/2025 11:59 PM CDT Hospital Encounter [facility] [address] [place] [address] RLQ abdominal pain Discharge Disposition: Discharge to home or self care 03/30/2025 Telephone [facility] [address] [place] [address] Kingston Restrepo MD Forms Request 03/28/2025 Telephone [facility] [address] [place] [address] Kingston Restrepo MD 03/17/2025 7:00 AM CDT Office Visit [facility] Primary [facility] [address] [place] [address] Kingston Restrepo MD RLQ abdominal pain (Primary Dx) 03/16/2025 Nurse Triage [facility] [address] [place] [address] Kingston Restrepo MD 03/11/2025 Results Follow-Up [facility] [address] [place] [address] Devi Ballesteros PA Comprehensive metabolic panel, TSH, [...] 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 CH: APRIL Report ID: [id number] Reading Location: [place] [address] Procedure Note Steven Olson MD - 04/17/2025 [...] Steven Olson M.D. CH: APRIL Report ID: [id number] Reading Location: [id number] us Kingston Restrepo MD IMG CT PROCEDURES Final Result * Testosterone, Total, LC/MS (03/10/2025 9:34 AM CDT) Testosterone 36 2 - 45 ng/dL [email or web address] Comment: For additional information, please refer to https://education.Tray/faq/TotalTestosteroneLCMSMS (This link is being provided for informational/educational purposes only.) (Note) This test was developed and its analytical performance characteristics have been determined by [employer]. It has not been cleared or approved by the FDA. This assay has been validated pursuant to the CLIA regulations and is used for clinical purposes. [facility] med fusion [address] [facility] [place] [address],[address] [place] [address] Gia Godinez MD, PhD 03/10/2025 9:34 AM CDT 03/10/2025 9:34 AM CDT us Devi DOTY LAB BLOOD ORDERABLES Final Result [facility] [address] [facility] [place] [address], [address] [place] [address] * (ABNORMAL) Iron profile w/ IBC (03/10/2025 [...] BLOOD ORDERABLES Final Result Performing Organization Address City/[facility]/ZIP Co de Phone Number [employer] [address] [address] [address] * TSH (03/10/2025 9:32 AM CDT) [facility] TSH 1.65 mIU/L [employer] Comment: Reference Range > or = 20 Years 0.40-4.50 Ranges First trimester 0.26-2.66 Second trimester 0.55-2.73 Third trimester 0.43-2.91 Blood 03/10/2025 9:32 AM CDT 03/10/2025 9:33 AM CDT Narrative [employer] - 03/11/2025 1:49 AM CDT FASTING:YES FASTING: YES Devi DOTY LAB BLOOD ORDERABLES Final Result Performing Organization Address [facility] Co de Phone Number [facility] [address] [place] [address] * (ABNORMAL) Lipid panel (03/10/2025 9:32 AM CDT) [facility] Cholesterol 188 <200 mg/dL [facility] HDL 53 > OR = 50 mg/dL [facility] Alex Triglycerides 83 <150 mg/dL [facility] LDL 117(H) mg/dL (calc) [employer] Alex Comment: Reference range: <100 Desirable range <100 mg/dL for primary prevention; <70 mg/dL for patients with CHD or diabetic patients with > or = 2 CHD risk factors. LDL-C is now calculated using the Yazan calculation, which is a validated novel method providing better accuracy than the Friedewald equation in the estimation of LDL-C. Javier WOODS et al. TRANG. 2013;310(19): 1867-5348 (http://education.Your Energy.Oodle/faq/NCZ336) Chol/HDL ratio 3.5 <5.0 (calc) [employer] Non-HDL, (LDL+VLDL) 135(H) <130 mg/dL (calc) [facility] g[facility] Johnson Comment: For patients with diabetes plus 1 major ASCVD risk factor, treating to a non-HDL-C goal of <100 mg/dL (LDL-C of <70 mg/dL) is considered a therapeutic option. Blood 03/10/2025 9:32 AM CDT 03/10/2025 9:33 AM CDT Narrative [facility] - 03/11/2025 1:49 AM CDT FASTING:YES FASTING: YES us Devi DOTY LAB BLOOD ORDERABLES Final Result RYAN [facility] [address] [place] [address] * Comprehensive metabolic panel (03/10/2025 9:32 AM CDT) Pathologist [facility] Glucose 95 65 - 99 mg/dL [facility] [employer] [facility] Comment: Fasting reference interval BUN 11 7 - 25 mg/dL [facility] [employer] [facility] Alex Creatinine 0.73 0.50 - 0.97 mg/dL [facility] [employer] [facility] [facility] eGFR 111 > OR = 60 mL/min/1.7 3m2 [facility] [employer] [facility] [facility] BUN/creat ratio SEE NOTE: 6 - 22 (calc) [facility] [employer] [facility] Comment: Not Reported: BUN and Creatinine are within reference range. Sodium 137 135 - 146 mmol/L [employer] Potassium, pl 4.4 3.5 - 5.3 mmol/L [facility] Chloride 106 98 - 110 mmol/L [facility] gillian Alex CO2 25 20 - 32 mmol/L [facility] Alex Calcium 8.9 8.6 - 10.2 mg/dL [facility] Protein, sr 6.9 6.1 - 8.1 g/dL Ryan [employer] [facility] Alex Albumin 4.3 3.6 - 5.1 g/dL [facility] Alex GLOBULIN 2.6 1.9 - 3.7 g/dL (calc) [facility] [employer] [facility] Alex Alb/glob ratio 1.7 1.0 - 2.5 (calc) [facility] Bilirubin, total 1.1 0.2 - 1.2 mg/dL [facility] gillina Johnson Alk phos 75 31 - 125 [...] ORDERABLES Final Result [facility] [address] [place] [address] from Last 3 Months Insurance [facility] [address] [facility] Care Teams Test Lead Application Testing Relationship Specialty Start Date End Date Kingston Restrepo MD [address] [place] [address] PCP - General Internal Medicine 04/11/22 Mike Lama MD 12/01/18
--- NOTE | 2025-05-13 07:19 | P.PNAN_ITS ---
Anes - Initial Pre Proc Eval Procedure: Operation Date: 05/13/25 08:30 Proposed Procedures p Robotic Assisted Hysterectomy with Bilateral Oophorectomy - Juan Pritchard MD Date/Time: 05/13/25 07:19 Surgeon: Juan Pritchard MD Pre Op Diagnosis: Endometriosis Patient Data Age: 35 Gender: F Height: 1.6 m Weight: 88.2 kg Allergies Allergy/AdvReac Type Severity Reaction Status Date / Time No Known Allergies Allergy Verified 05/03/25 10:42 Home Medications ?Medication ?Instructions ?Recorded ?Confirmed ?Type No Home Medications 05/04/25 05/04/25 H istory Patient hx anesthesia problems: post op nausea/vomiting Family hx anesthesia problems: none Results Review: All pre-operative results and documents have been reviewed as part of the pre- operative evaluation. [facility] Family History Family History Other No pertinent family history Social History Social History Smoking status: Never smoker Second hand tobacco smoke exposure: Yes Substance use: never Substance use type: does not use Living arrangements: with family Spiritual care concerns: No Anes - Eval Final PreProcedure Day of Procedure 05/13/25 07:19 Patient weight: normal Lungs: normal air movement Airway: Mallampati scale class II Last oral intake: >/= 8 hours ASA classification: II Emergent: no Anesthetic plan: proceed Anesthesia type and monitoring: general ETT and standard monitoring Results Review: All pre-operative results and documents have been reviewed as part of the pre- operative evaluation. BMI 34, pt snores but no known SMILEY. Informed Consent: The patient's anesthetic plan and its attendant risks and benefits were discussed with the patient/family/POA. Questions were solicited and answers provided to the satisfaction of the patient/family/POA.
--- NOTE | 2025-05-13 07:20 | WPDHPUPDATE1 ---
History and Physical Update Update Date/Time: 05/13/25 07:20 History and Physical has been reviewed, including an updated exam of the patient. There are NO changes in the patient's condition. Risks, benefits, and alternatives have been discussed and questions answered. Patient agrees to proceed with procedure.
[2025-05-13 07:22] LABS: Hematocrit 37.0 % (37.0-47.0); Hemoglobin 11.2 g/dL (12.0-15.0)
--- NOTE | 2025-05-13 07:26 | WPDHPUPDATE1 ---
History and Physical Update Update Date/Time: 05/13/25 07:26 History and Physical has been reviewed, including an updated exam of the patient. There are NO changes in the patient's condition. Risks, benefits, and alternatives have been discussed and questions answered. Patient agrees to proceed with procedure.
[2025-05-13] MEDS: KETOROLAC 15 MG/ML VIAL (*BKC) IV PUSH (07:30)
[2025-05-13] MEDS: ACETAMINOPHEN 500 MG TABLET 1000 MG PO ×3 (07:30→19:35)
[2025-05-13] MEDS: LACTATED RINGERS 1,000 ML 30 ML IV CONT ×2 (07:30→10:10)
[2025-05-13] MEDS: SCOPOLAMINE 1 MG PATCH 1 PATCH TRANSDERM (07:30)
[2025-05-13] MEDS: ceFAZolin 2 GM in SODIUM CHLORIDE 0.9% IV 50 ML 100 ML IVPB (07:49)
--- NOTE | 2025-05-13 09:34 | S_PTH ---
PATIENT: Iris Killian LOC: [facility] U#:[id number] AGE/SX: 35/F ROOM: RE05/13/[address]: Juan Pritchard MD : 1990 BED: DIS: 05/14/2025 SPEC #: [id number] RECD: 05/13/25 11:27 STATUS: REBEL REQ #: [id number] ELEONORA: 05/13/25 09:[address]: Juan Pritchard DEPT: [facility] Surgical RECD BY: Marita Murphy ENTERED: 05/13/25 11:27 SP TYPE: Surgical OTHR DR: Kingston RestrepoMD Tissues: A - Uterus Procedures: Hematoxylin and Eosin Stain Gross and Microscopic Level 5
--- NOTE | 2025-05-13 10:06 | P.OP_ITS ---
Procedure Note - Detailed Date of Procedure 05/13/25 Pre-op Diagnosis Endometriosis Post-op Diagnosis Same Procedure Performed Robot assisted Total hysterectomy with right oophorectomy. Surgeon Juan Pritchard MD Anesthesia General Indications heavy vaginal bleeding, pelvic pain Findings Ovaries were adherent together and adherent to the posterior aspect of the uterus. There was diffuse scar tissue in the bilateral adnexa. Ovaries appeared normal. Right ovary was removed Description of Procedure This patient was taken to the operating room. She was prepped and draped in the dorsal lithotomy position after induction of general anesthesia. The uterine manipulator and Ignacia cup were placed. This was done with a speculum and tenaculum. The speculum was placed. The cervix was grasped with a reggie culum. The stay sutures were placed at 3 and 9:00 a.m.. The stay sutures of 0 Vicryl were tied to the appropriately Size scope after it was slipped around the cervix.. The tip of the MALATHI manipulator was placed in the intrauterine cavity. The cup was slid into place around the cervix and into the fornices. It was locked into place. The sutures were then wrapped around the handle and tied und er tension. A 8 mm skin incision was made in the left upper quadrant the abdomen. a 5 mm Visiport trocar was inserted into abdominal cavity and pneumoperitoneum was achieved. A 8 mm supraumbilical incision was made and a 8 mm trocar was inserted into the intrauterine cavity under direct visualization of the scope. an 8 mm incision was made in the right upper quadrant of the abdomen and an 8 mm robotic trocar was placed the inter uterine cavity under direct visualization the scope. An 11 mm trocar was inserted in the right upper quadrant of the abdomen rectal is a cystoscope after an incision was made there as well. The robot was docked. Electronic Orientation of the robot was performed. Bilateral ureteral lysis was performed. This was done from the pelvic brim down to the uterine artery. This was done with careful dissection using sharp and blunt dissection. Right oophorectomy was performed. The right infundibulopelvic ligament was cauterized and transected. The para ovarian mesosalpinx was cauterized and transected in stepwise fashion around the ovary to the uterus. The ovary was adherent to the posterior uterus. Sat was with blunt dissection. Cautery was also used. (The ovarie taken out to the colpotomy after amputation of the uterus). Then In a stepwise fashion along the lateral aspects of the uterus the round ligament and broad ligaments were cauterized transected down to the level of the uterine arteries. A bladder flap was created in the bladder was moved distally to the end of the cervix and over the Ignacia cup. The bilateral uterine arteries were cauterized and transected. Colpotomy was then performed. In a circumferential fashion the vagina was transected using unipolar cautery. The incision was made down on the Ignacia cup. The uterus and cervix were taken out through the vagina. A pneumo occluder was placed in the vagina. Over 30 minutes of adhesiolysis was required to perform the above portions of the surgery. Adhesiolysis done with blunt and sharp dissection and use of cautery and a vessel sealer. Left ovary had to be dissected off the posterior aspect of the uterus. The vaginal cuff was closed with a 0 V lock suture in a running fashion. The pelvis was irrigated with copious amounts antibiotic irrigation. The ureters were again examined and found to be intact and flowing freely under the uterine arteries into the bladder. The bladder was intact. It was examined directly. Cystoscopy was performed after administration of methylene blue. The cystoscope was inserted. Bladder was distended with fluid. The ureteric meatus was observed bilaterally. Blue fluid was seen to egress bilaterally. The bladder was drained and the cystoscope was withdrawn. The vagina was irrigated with Betadine solution after removal of the Pneumo occluder. the trocars were removed after the robot was undocked. The skin was closed with subacute or Dermabond. The patient was taken to recovery room. She was stable condition. Sponge lap and needle counts were correct x2. Estimated Blood Loss 50 Urine Output 800 Drains Yes Packing No Pathology Yes Complications No immediate complications Condition Stable Disposition Floor
--- NOTE | 2025-05-13 11:22 | PC.NURSE ---
This patient, Iris Killian, was received from PACU via bed on 05/13/25 at 1122. Patient/family oriented to unit policies and routines.
[2025-05-13] MEDS: DEXTROSE 5%/0.45% SOD CHL 1,000 ML 125 ML IV CONT ×2 (11:43→20:21)
[2025-05-13] MEDS: oxyCODONE HCL (*CRX) 5 MG TAB IR PO ×4 (11:44→23:37)
[2025-05-13] MEDS: SIMETHICONE 80 MG TAB.CHEW PO (11:45)
[2025-05-13] MEDS: KETOROLAC 30 MG/ML VIAL (*BKC) IV PUSH ×2 (13:27→19:35)
[2025-05-13] MEDS: ONDANSETRON INJ 4 MG/2 ML VIAL IV PUSH (16:04)
[2025-05-13] MEDS: oxyCODONE HCL (*CRX) 5 MG TAB IR 10 MG PO (18:40)
[2025-05-14] MEDS: ACETAMINOPHEN 500 MG TABLET 1000 MG PO ×2 (01:40→08:00)
[2025-05-14] MEDS: KETOROLAC 30 MG/ML VIAL (*BKC) IV PUSH (01:40)
[2025-05-14 03:35] VITALS: BP 116/62; PULSE 80; RESP 16; TEMP 36.8; O2SAT 98
[2025-05-14] MEDS: oxyCODONE HCL (*CRX) 5 MG TAB IR PO ×2 (07:15→11:48)
[2025-05-14] MEDS: SIMETHICONE 80 MG TAB.CHEW PO ×2 (08:00→11:48)
[2025-05-14] MEDS: IBUPROFEN 600 MG TABLET PO (08:00)
[2025-05-14] MEDS: DOCUSATE SODIUM 100 MG CAPSULE PO (08:00)
[2025-05-14 08:10] VITALS: BP 104/63; PULSE 67; RESP 18; TEMP 37; O2SAT 99
--- NOTE | 2025-05-14 08:10 | PM.GYNPNOP ---
MUSIC COMPOSITION TEACHER - A/P Assessment and plan (1) History of robot-assisted laparoscopic hysterectomy: Code(s): Z90.710 - Acquired absence of both cervix and uterus Status: Acute Assessment and Plan: - POD#1 meeting postop milestones - pain controlled - voiding without issue - ready for discharge home (2) History of right oophorectomy: Code(s): Z90.721 - Acquired absence of ovaries, unilateral Status: Acute Postoperative Procedures: Procedures Operation Date: 05/13/25 08:30 Actual Procedure Side Surgeon p Robotic Assisted Hysterectomy with Right Oophorectomy Right Juan Pritchard MD Postoperative day: 1 Postoperative status: doing well Postoperative plan: discharge Time Spent With Patient Time: Total time spent is greater than 50% in coordination of care (as documented) at patient's floor/unit and/or counseling patient: Time with patient: 15 - 25 minutes MUSIC COMPOSITION TEACHER- PN:Subj Post-Op Subjective Date/time seen: 05/14/25 08:10 Interval history: POD#1 s/p RA-TLH and RO Doing well, pain controlled with PO meds Voiding without issue Tolerating general diet Mild spotting passing flatus Review of Systems Review of Systems: All systems reviewed & are unremarkable except as noted in HPI and below Exam Const: General: comfortable and no acute distress Resp: Effort & Inspection: normal respiratory effort GI: Other: soft, appropriately tender, incisions c/d/i Extrem: General: normal to inspection Psych: Mental Status: mental status grossly normal MUSIC COMPOSITION TEACHER - PN: Obj Data Vital Signs Vital Signs: Vital Signs - 24 hr 05/13/25 10:10 05/13/25 10:25 05/13/25 10:40 Temperature 97.1 F L Pulse Rate 88 84 89 Respiratory Rate 18 18 16 Blood Pressure 109/53 L 136/70 147/84 H Pulse Oximetry 99 100 100 Oxygen Delivery Simple Face Mask Simple Face Mask Room Air Oxygen Flow Rate 6 6 05/13/25 10:55 05/13/25 11:10 05/13/25 11:25 Temperature 97.0 F L 97.3 F L Pulse Rate 90 84 84 Respiratory Rate 16 16 16 Blood Pressure 139/78 131/73 132/69 Pulse Oximetry 100 99 99 Oxygen Delivery Room Air Room Air Oxygen Flow Rate 05/13/25 16:35 05/13/25 19:07 05/13/25 23:30 Temperature 98.2 F 97.9 F 98.4 F Pulse Rate 93 86 89 Respiratory Rate 20 18 14 Blood Pressure 115/66 126/79 113/55 L Pulse Oximetry 98 97 97 Oxygen Delivery Oxygen Flow Rate 05/14/25 03:35 05/14/25 07:20 Temperature 98.2 F Pulse Rate 80 Respiratory Rate 16 Blood Pressure 116/62 Pulse Oximetry 98 Oxygen Delivery Room Air Oxygen Flow Rate Intake/Output Intake/Output: Intake & Output 05/11/25 05/12/25 05/13/25 05/14/25 23:59 23:59 23:59 23:59 Intake Total 2806.3 637.5 Output Total 3750 1400 Balance -943.7 -762.5 Meds/Results Medications: Active Medications Generic Name Dose Route Start Last Admin Trade Name Freq PRN Reason Stop Dose Admin Acetaminophen 1,000 mg 05/13/25 12:00 05/14/25 08:00 Acetaminophen 500 Mg Tablet PO 1,000 mg Q6HR DENISE Administration Docusate Sodium 100 mg 05/13/25 17:00 05/14/25 08:00 Docusate Sodium 100 Mg Capsule PO 100 mg BID DENISE Administration Dextrose/Sodium Chloride 1,000 mls @ 125 mls/hr 05/13/25 11:14 05/14/25 04:37 Dextrose 5% Sodium Chloride 0.45% IV CONT Not Given .Q8H DENISE Ibuprofen 600 mg 05/14/25 06:00 05/14/25 08:00 Ibuprofen 600 Mg Tablet PO 600 mg Q6HR DENISE Administration Naloxone HCl 0.1 mg 05/13/25 11:14 Naloxone Hcl 0.4 Mg/Ml Vial IV PUSH Q2M PRN Respiratory rate less than 10 Ondansetron HCl 4 mg 05/13/25 11:14 05/13/25 16:04 Ondansetron Inj 4 Mg/2 Ml Vial IV PUSH 4 mg Q6H PRN Administration Nausea And Vomiting Oxycodone HCl 5 mg 05/13/25 11:14 05/14/25 07:15 Oxycodone Hcl (*Crx) 5 Mg Tab Ir PO 5 mg Q4H PRN Administration Pain Rated 4-6 Oxycodone HCl 10 mg 05/13/25 11:14 05/13/25 18:40 Oxycodone Hcl (*Crx) 5 Mg Tab Ir PO 10 mg Q6H PRN Administration Pain Rated 7-10 Simethicone 80 mg 05/13/25 12:00 05/14/25 08:00 Simethicone 80 Mg Tab.Chew PO 80 mg TIDWM DENISE Administration Labs 05/13/25 07:17
== END 2025-05-14 13:20 | disposition home or self-care (01) ==
LOC: ANHSURGERY 06:25 → ANHOB2 11:24
PROVIDERS: Anesthesiology; PCP Internal Medicine; Visit Provider Obstetrics & Gynecology
PROC: (CPT 58571; principal; 2025-05-13 08:30)
DX: N92.0 Excessive and frequent menstruation with regular cycle (principal); N72 Inflammatory disease of cervix uteri; D25.9 Leiomyoma of uterus, unspecified; N83.11 Corpus luteum cyst of right ovary; R10.2 Pelvic and perineal pain
CPT/HCPCS: 58571; S2900; 36415; 85014; 85018; 88307; 99199; J0690; A9270; J1100; J1171; J1885; J2003; J2250; J2405; J2704; J3010; J7030; J7120; Q9968